=== PATIENT | male | born 1965 | race Caucasian/White ===

== ENCOUNTER → 2020-06-17 11:24 | Outpatient (CLI) | payer OTHER, SELFPAY ==
--- NOTE | 2020-06-17 12:45 | DI.CT.S_ITS ---
PROCEDURE: CT SOFT TISSUE NECK W CON INDICATIONS: Neck mass TECHNIQUE: After the administration of intravenous contrast, 3.0 mm axial sections acquired from the sella to the aortic arch. Additional oblique axial 3.0 mm sections acquired through the pharynx. 3 mm thick coronal and sagittal reformats were generated. For radiation dose reduction, the following was used: automated exposure control. COMPARISON: None. FINDINGS: Image quality: Excellent. Lymph nodes: There are few threshold enlarged lymph nodes in the left neck as well as numerous non threshold but suspicious appearing left cervical lymph nodes which are abnormally rounded and have adjacent fat stranding/haziness. The largest lymph node is in the left supraclavicular station on series 2, image 61 measuring approximately 1.2 centimeters short axis diameter. There also a few abnormally rounded subpectoral lymph nodes on the left which are asymmetrically enlarged. The patient's palpable area of concern in the left suprahyoid neck corresponds to of cluster of jugulodigastric and posterior cervical lymph nodes which are abnormally rounded and lack a central fatty hilum. Vessels: Visualized vasculature appears patent. Neck spaces: The oropharynx, nasopharynx, and pharynx demonstrate no mucosal lesions. The vocal cords, false vocal cords, pyriform sinuses, epiglottis, vallecula, and tongue base all appear normal. Extramucosal spaces appear unremarkable. Glands: There are inflammatory changes surrounding the left parotid gland inferiorly as well as a few reactive mildly enlarged left parotid lymph nodes. Right parotid gland is unremarkable. Both submandibular glands are normal. Miscellaneous: Visualized brain and orbits appear normal. Lung apices appear clear. Superficial soft tissues appear normal. Bones: No suspicious bony lesions. Visualized sinuses and mastoids appear unremarkable. IMPRESSION: Inflammatory changes surrounding the posterior and inferior left parotid gland with presumably reactive left cervical lymphadenopathy. Findings are most likely due to infectious or inflammatory parotitis with associated reactive lymphadenopathy. Neoplasm cannot be strictly excluded, however. Follow-up CT in 3-4 weeks is recommended after appropriate course of therapy. If the adenopathy persist despite therapy, ultrasound-guided biopsy/FNA would be recommended. Dictated by: Michael Alston M.D. on 06/17/2020 at 13:04 Approved by: Michael Alston M.D. on 06/17/2020 at 13:23
== END ==
PROVIDERS: PCP Dentist Oral and Maxillofacial Surgery; Referring Provider Dentist Oral and Maxillofacial Surgery; Visit Provider Dentist Oral and Maxillofacial Surgery
DX: L02.11 Cutaneous abscess of neck (principal)
CPT/HCPCS: 70491; Q9967

== ENCOUNTER → 2020-07-12 16:07 | Outpatient (CLI) | payer OTHER, SELFPAY ==
--- NOTE | 2020-07-12 16:10 | DI.MRI.S_ITS ---
PROCEDURE: MR ORBITS FACE NECK WO/W CON INDICATIONS: Left sided Localized swelling, mass and lump, neck TECHNIQUE: Sagittal/axial/coronal T1 spin echo and STIR. After the administration of contrast, axial/coronal/sagittal T1 fast spin echo with fat saturation through the neck. COMPARISON: [facility], CT, CT SOFT TISSUE NECK W CON, 06/17/2020, 12:31. FINDINGS: Image quality: This examination is limited by involuntary motion artifact. Lymph nodes: No enlarged nodes are seen throughout the neck. Borderline prominent lymph nodes are seen adjacent to the inferior aspect of the left parotid gland. A few borderline prominent lymph nodes from also be seen involving the right neck, primarily at level 2A. Vessels: Visualized vasculature appears normal, with normal flow voids and enhancement. Neck spaces: The oropharynx, nasopharynx and pharynx are unremarkable, without mucosal lesions seen. Vocal cords, false vocal cords, pyriform sinuses, epiglottis, vallecula, and tongue base all appear normal. Extramucosal spaces of the neck also appear unremarkable. Glands: Scrutiny is given to the left parotid gland. At the inferior aspect of the left parotid gland, there is a mild degree of inflammatory change seen. The submandibular glands appear normal. Thyroid gland is not well seen. Miscellaneous: Visualized brain and orbits appear normal. Lung apices appear clear. Superficial soft tissues appear normal. Visualized sinuses and mastoids appear clear. Bones: Marrow has normal overall signal. IMPRESSION: There are mild inflammatory changes again seen adjacent to the inferior aspect of the left parotid gland, which are improved compared to the recent prior CT examination. No penny masses are detected. Borderline prominent regional lymph nodes are seen adjacent to the inferior left parotid gland. Dictated by: Gabino Weston M.D. on 07/12/2020 at 16:56 Approved by: Gabino Weston M.D. on 07/12/2020 at 16:59
== END ==
PROVIDERS: PCP Dentist Oral and Maxillofacial Surgery; Referring Provider Dentist Oral and Maxillofacial Surgery; Visit Provider Dentist Oral and Maxillofacial Surgery
DX: R22.1 Localized swelling, mass and lump, neck (principal)
CPT/HCPCS: 70543; A9579

== ENCOUNTER → 2020-12-09 15:02 | Outpatient (CLI) | payer OTHER, SELFPAY ==
[2020-12-09] MEDS: COVID-19 VACC, Ad26(JANSSEN)/PF 0.5 ML IM (15:16)
== END ==
PROVIDERS: PCP Dentist Oral and Maxillofacial Surgery; Visit Provider Internal Medicine
DX: Z23 Encounter for immunization (principal)
CPT/HCPCS: 0031A; 91303

== ENCOUNTER → 2022-09-13 15:33 | Outpatient (ROUT) | payer OTHER, SELFPAY | PROVIDERS: PCP Dentist Oral and Maxillofacial Surgery; Visit Provider Dermatology | DX: Z48.02 Encounter for removal of sutures (principal) | CPT/HCPCS: 87070; 87075; 87077; 87147; 87185; 87186; 87205 ==

== ENCOUNTER → 2024-02-18 10:42 | Outpatient (CLI) | payer OTHER, SELFPAY ==
[2024-02-18 11:28] LABS: Add Manual Diff / Slide Review NO; Basophils Absolute Auto 100 /uL (0-100); Basophils Percent Auto 0.9 % (0-2); Eosinophils Absolute Auto 100 /uL (0-450); Eosinophils Percent Auto 2.2 % (2-4); Hematocrit 45.1 % (41-53); Hemoglobin 15.7 g/dL (13.5-17.5); Lymphocytes Absolute Auto 1400 /uL (1100-4500); Lymphocytes Percent Auto 26.7 % (25-40); Mean Corpuscular HGB Conc 34.9 % (30-36); Mean Corpuscular Hemoglobin 29.8 PG (26-34); Mean Corpuscular Volume 85.5 fL (80-100); Monocytes Absolute Auto 700 /uL (0-900); Monocytes Percent Auto 12.2 % (3-14); Neutrophils Absolute Auto 3100 /uL (1500-7000); Platelet Count 246 X10^3/uL (150-400); Red Blood Cell Count 5.27 X10^6/uL (4.5-5.9); Red Cell Distribution Width 13.8 % (11.6-14.8); White Blood Cell Count 5.4 X10^3/uL (4.5-11.0)
[2024-02-18 11:33] LABS: Hemoglobin A1C% w Est Avg Glu 5.5 % (4.0-6.0)
[2024-02-18 11:48] LABS: Alanine Aminotransferase 33 IU/L (<50); Albumin 4.2 g/dL (3.5-5.0); Albumin Globulin Ratio 1.4 (1.0-2.8); Alkaline Phosphatase 66 U/L (38-126); Aspartate Aminotransferase 31 IU/L (17-59); Bilirubin Total 0.7 mg/dL (0.2-1.3); Blood Urea Nitrogen 12 mg/dL (9-20); Calcium 9.2 mg/dL (8.4-10.2); Carbon Dioxide 26 mmol/L (22-32); Chloride 105 mmol/L (98-107); Cholesterol 245 mg/dL (140-199); Estimated Glomerular Filt Rate > 60 mL/min (>60); Globulin 3.1 g/dL (1.7-4.1); Glucose 94 mg/dL (70-100); HDL Cholesterol 40 mg/dL (40-60); HEMOLYSIS < 15 (0-50); LDL Cholesterol Calculated 155 mg/dL (<100); Potassium 4.2 mmol/L (3.4-5.1); Sodium 137 mmol/L (137-145); Total Protein 7.3 g/dL (6.3-8.2); Triglycerides 251 mg/dL (35-150)
[2024-02-18 12:20] LABS: Prostate Specific Antigen 1.03 ng/mL (0.10-4.00)
== END ==
PROVIDERS: PCP Family Medicine; Referring Provider Family Medicine; Visit Provider Family Medicine
DX: Z00.00 Encounter for general adult medical examination without abnormal findings (principal); Z83.3 Family history of diabetes mellitus
CPT/HCPCS: 36415; 80053; 80061; 83036; 84153; 85025

== ENCOUNTER 2024-06-19 09:58 | Day surgery (SDC) | payer OTHER, SELFPAY ==
--- NOTE | 2024-06-19 | PATH_ITS ---
[facility] Accession Number: [id number] No. of containers..03 Tissue . 01 Material submitted: . PART A: colon - ASCENDING POLYP PART B: colon - TRANSVERSE POLYP PART C: sigmoid colon - SIGMOID POLYP . 01 Diagnosis: Part A: ASCENDING POLYP: Tubular adenoma. . Part B: TRANSVERSE POLYP: Sessile serrated adenoma. . Part C: SIGMOID POLYP: Colonic mucosa with benign lymphoid aggregate. No neoplasm identified. [facility] 06/23/2024 1450 Local . 01 Electronically signed: . Bunny Bell MD, Pathologist NPI- [id number] . 01 Gross description: . A. Received in formalin with two patient identifiers and ascending colon, is a single morrison soft tissue fragment, 1.0 cm in greatest dimension, submitted in A1. . B. Received in formalin with two patient identifiers and transverse colon, are two morrison and yellow tissue fragments, 0.6 to 1.6 cm in greatest dimension, submitted in B1. . C. Received in formalin with two patient identifiers and sigmoid polyp is a single morrison soft tissue fragments, 0.6 cm in greatest dimension, submitted in C1. ([id number]) /MRV 06/23/2024 1450 Local . 01 Pathologist provided ICD-10: D12.2, D12.3, K63.89 . 01 CPT . 906305, 438165, 211303 Specimen Comment: A courtesy copy of this report has been sent to [phone] Performed at: [address] [address], [place], [place] [id number] MD Bnuny Bell MD Phone: [phone]
[2024-06-19 10:19] VITALS: BP 149/100; PULSE 75; RESP 17; TEMP 36.1; O2SAT 97
--- NOTE | 2024-06-19 10:38 | PM.HP.1 ---
History of Present Illness History of Present Illness Date Patient Seen: 06/19/24 Time Patient Seen: 10:38 Chief complaint: Colonoscopy Narrative: Otoniel is a 58-year-old man is here for his first colonoscopy. He has no family history of colon cancer. [facility] Medical History (Updated 06/19/24 @ 10:38 by Chencho Muniz MD) Hyperlipidemia Hypertension Family history of heart disease Family history of type 2 diabetes mellitus History of basal cell carcinoma (~2021) Encounter for well adult exam without abnormal findings Surgical History (Updated 03/11/24 @ 21:31 by Yolanda Dial) Anesthesia History of hand surgery (~1986) Family History (Updated 03/11/24 @ 21:33 by Yolanda Dial) Father Diabetes mellitus History of heart disease Mother History of heart disease Brother History of heart disease Sister Cancer of blood vessel Social History Smoking Status: Never smoker alcohol intake: current Meds Home Medications and Allergies Home Medications Medication Instructions Recorded Confirmed Type peg 3350-sod sulf,[id number]-[id number] 1,000 ml PO DIRECTED #2,000 mL 04/21/24 06/19/24 Rx 178.7-7.3-0.5-1.12-0.9 gram oral soln (Suflave) lisinopril 10 mg tablet 10 mg PO DAILY #90 tabs 05/20/24 06/19/24 Rx Allergies Allergy/AdvReac Type Severity Reaction Status Date / Time No Known Drug Allergies Allergy Verified 06/19/24 10:11 Exam Vital Signs (past 8 hours): - 06/19/24 10:19 Temperature 96.9 F L Pulse Rate 75 Respiratory Rate 17 Blood Pressure 149/100 H Pulse Oximetry 97 Oxygen Delivery Method Room Air Oxygen Delivery Method Room Air Const General: healthy appearing Resp Effort & Inspection: normal respiratory effort Assessment & Plan Assessment and plan (1) Colon cancer screening: Status: Acute Plan We discussed risks and benefits of colonoscopy for colon cancer screening and he would like to proceed. Time-Based Coding :: [TOTAL MINUTES] spent with patient and on the chart (including review of chart, obtaining history, exam, reviewing outside data, placing orders, documenting exam and treatment plan, and counseling patient) on [DATE].
[2024-06-19 11:15] VITALS: BP 110/85; PULSE 96; RESP 12; O2SAT 93
[2024-06-19 11:20] VITALS: BP 109/70; PULSE 89; RESP 12; O2SAT 93
--- NOTE | 2024-06-19 11:20 | PM.OP.COLON ---
Operative Date/Time/Diagnoses Date of procedure: 06/19/24 Time of procedure: 11:20 Pre-op diagnosis: History of polyps Post-op diagnosis: same Procedure & Clinicians Study performed: Colonoscopy Same procedure as scheduled: Yes Surgeon: Chencho Muniz Procedure Notes Procedure in detail: Surgeon: Chencho Muniz MD Anesthesia: Farshad Olivera MD Procedure: The patient was brought to the endoscopy suite, placed in left lateral decubitus position. The patient was connected to monitoring devices. A time-out was performed. Sedation was administered. Once the patient was adequately sedated, a digital rectal exam was performed and was normal. The scope was then inserted and advanced to the cecum where the appendiceal orifice was identified and photographed. The scope was then slowly withdrawn over greater than 6 minutes. The mucosa was thoroughly inspected. There was a 5 mm polyp in the ascending colon removed with a cold snare. There was an 8 mm polyp in the transverse colon removed with a cold snare. There was a 5 mm polyp in the sigmoid colon removed with a cold snare. The scope was retroflexed in the rectum. No other abnormalities were identified. The scope was straightened and removed. The patient was awakened and brought to recovery. Scope withdrawal time: 14 minutes Sedation time: 28 minutes EBL: 5 mL Findings: 5 mm ascending colon polyp, 8 mm transverse colon polyp and 5 mm sigmoid colon polyp Post-procedure Disposition: PACU
[2024-06-19 11:27] VITALS: BP 112/80; PULSE 85; RESP 10; O2SAT 93
[2024-06-19 11:32] VITALS: BP 131/94; PULSE 83; RESP 23; TEMP 36.2; O2SAT 92
== END 2024-06-19 11:58 | disposition home or self-care (01) ==
PROVIDERS: PCP Family Medicine; Referring Provider Surgery; Visit Provider Surgery
PROC: 0DJD8ZZ Inspection of Lower Intestinal Tract, Via Natural or Artificial Opening Endoscopic (ICD-10-PCS; CPT 45378; principal; 2024-06-19 11:00)
DX: Z12.11 Encounter for screening for malignant neoplasm of colon (principal); Z86.0100 Personal history of colon polyps, unspecified; D12.2 Benign neoplasm of ascending colon; D12.3 Benign neoplasm of transverse colon; K63.5 Polyp of colon
CPT/HCPCS: 45385; J2704